=== PATIENT | male | born 1950 | race Caucasian/White ===

== ENCOUNTER 2017-03-07 00:07 | Emergency (ER) | payer MEDICARE ==
[~2017-03-07] VITALS: Ht 167.6 cm; Wt 68.0 kg
[~2017-03-07 00:07] MED LIST: PHEN100C PO
[2017-03-07] MEDS ORDERED: SODIUM CHLORIDE 0.9% 1,000ML IVBOLUS ONE (01:00)
[2017-03-07 01:10] LABS: BLOOD UREA NITROGEN 15 mg/dL (7-18)
[2017-03-07 01:17] LABS: IS PT STATUS REG ER OR PRE ER? YES
[2017-03-07] MEDS ORDERED: LEVETIRACETAM 1,000 MG in SODIUM CHLORIDE 0.9% 100 ML IV ONE (01:30)
[2017-03-07 01:46] LABS: DAU SCREEN DISCLAIMER
[2017-03-07 03:18] VITALS: BP 117/64
== END 2017-03-07 03:19 | disposition home or self-care (01) ==
LOC: ED 03:00
DX: G40.319 Generalized idiopathic epilepsy and epileptic syndromes, intractable, without status epilepticus (principal); F12.129 Cannabis abuse with intoxication, unspecified; F15.129 Other stimulant abuse with intoxication, unspecified
CPT/HCPCS: 36415; 70450; 80048; 80307; 82040; 84484; 85025; 93005; 96361; 96374; 99285; J1953; J7030

== ENCOUNTER 2017-03-23 03:15 | Emergency (ER) | payer MEDICARE ==
[~2017-03-23] VITALS: Ht 170.2 cm; Wt 60.0 kg
[2017-03-23 06:04] VITALS: BP 121/81
== END 2017-03-23 06:06 | disposition home or self-care (01) ==
LOC: ED 03:53
DX: Z76.0 Encounter for issue of repeat prescription (principal); M25.562 Pain in left knee; M25.561 Pain in right knee; G89.29 Other chronic pain; F10.10 Alcohol abuse, uncomplicated; F15.10 Other stimulant abuse, uncomplicated; Z88.6 Allergy status to analgesic agent
CPT/HCPCS: 36415; 71010; 71020; 80307; 84550; 99285

== ENCOUNTER 2017-07-22 11:39 | Emergency (ER) | payer MEDICARE ==
[~2017-07-22] VITALS: Ht 170.2 cm; Wt 53.6 kg
[2017-07-22 11:41] VITALS: BP 141/74
== END 2017-07-22 12:54 | disposition home or self-care (01) ==
LOC: ED 12:30
DX: S20.212A Contusion of left front wall of thorax, initial encounter (principal); I10 Essential (primary) hypertension; W20.8XXA Other cause of strike by thrown, projected or falling object, initial encounter; Y93.89 Activity, other specified; Y92.89 Other specified places as the place of occurrence of the external cause; Y99.8 Other external cause status
CPT/HCPCS: 99284

== ENCOUNTER 2017-10-24 13:40 | Inpatient (IN) | payer MEDICARE, MEDICAID ==
[~2017-10-24] VITALS: Ht 170.2 cm; Wt 59.0 kg
[2017-10-24] MEDS ORDERED: SODIUM CHLORIDE 0.9% 1,000 ML IV ONE (14:19)
[2017-10-24] MEDS ORDERED: PLEASE ENTER HEIGHT AND WEIGHT MC SCH (14:30)
[2017-10-24] MEDS ORDERED: SODIUM CHLORIDE FLUSH 10ML SYR IVF ONE (14:30)
[2017-10-24 14:48] LABS: HEMATOCRIT 44.4 % (39.2-51.8); HEMOGLOBIN 14.6 g/dL (13.7-18.0); WHITE BLOOD COUNT 4.3 x10^3/uL (3.4-10)
[2017-10-24 14:57] LABS: ASPARTATE AMINO TRANSFERASE 43 U/L (15-37); BLOOD UREA NITROGEN 19 mg/dL (7-18)
[2017-10-24] MEDS ORDERED: FILTER 0.22 MICRON IV ONE (16:30)
[2017-10-24] MEDS ORDERED: PHENYTOIN SODIUM 1,000 MG in SODIUM CHLORIDE 0.9% 100 ML IVPB ONE (16:30)
[2017-10-24 18:53] LABS: DAU SCREEN DISCLAIMER
[2017-10-24] MEDS ORDERED: BISACODYL 10 MG SUPP PR PRN (19:00)
[2017-10-24] MEDS ORDERED: ACETAMINOPHEN 325 MG TABLET PO PRN (19:00)
[2017-10-24] MEDS: HEPARIN 5,000 UNITS/ML, 1ML SQ SCH (19:00)
[2017-10-24] MEDS ORDERED: ONDANSETRON 2MG/ML, 2ML IVPush PRN (19:00)
[2017-10-24] MEDS ORDERED: POLYETHYLENE GLYCOL 17 GM PACKET PO PRN (19:00)
[2017-10-24] MEDS ORDERED: PERMETHRIN CRM 5%, 60GM TP SCH (19:30)
[2017-10-24] MEDS ORDERED: LORazepam 2 MG/ML, 1ML IVPush PRN (19:30)
[2017-10-24] MEDS ORDERED: NICOTINE 21 MG/24 HR PATCH.TD24 TD ONE (19:30)
[2017-10-24 20:00] VITALS: BP 109/65
[2017-10-24] MEDS: SODIUM CHLORIDE FLUSH 10ML SYR IVF SCH (23:40)
[2017-10-25] MEDS: HEPARIN 5,000 UNITS/ML, 1ML SQ SCH ×2 (03:00→11:23)
[2017-10-25 04:00] VITALS: BP 104/71
[2017-10-25 05:17] LABS: BLOOD UREA NITROGEN 19 mg/dL (7-18)
[2017-10-25 05:22] LABS: ASPARTATE AMINO TRANSFERASE 38 U/L (15-37)
[2017-10-25 06:15] VITALS: BP 109/65
[2017-10-25 08:00] VITALS: BP 108/69
[2017-10-25] MEDS ORDERED: SENNA/DOCUSATE TABLET PO SCH (09:00)
[2017-10-25] MEDS ORDERED: PHENYTOIN 100 MG CAPSULE PO SCH (09:00)
[2017-10-25] MEDS: SODIUM CHLORIDE FLUSH 10ML SYR IVF SCH (11:22)
[2017-10-25 14:00] VITALS: BP 101/66
[2017-10-25] MEDS ORDERED: PHEN100C PO (15:16)
== END 2017-10-25 17:23 | disposition home or self-care (01) | DRG 101 ==
LOC: ED 17:40 → EDIP 18:48 → 3NE 19:00
PROVIDERS: ADMIT Hospitalist; ATTEND Hospitalist
DX: G40.509 Epileptic seizures related to external causes, not intractable, without status epilepticus (principal); B85.2 Pediculosis, unspecified; F12.10 Cannabis abuse, uncomplicated; F19.10 Other psychoactive substance abuse, uncomplicated; Z71.6 Tobacco abuse counseling; Z72.0 Tobacco use; Z91.14 Patient's other noncompliance with medication regimen; Z90.89 Acquired absence of other organs; Z88.6 Allergy status to analgesic agent; Z71.89 Other specified counseling
CPT/HCPCS: 36415; 70450; 80053; 80185; 80307; 81003; 85025; 93005; 96361; 96365; 96366; J1165; J1644; G0479; J7030

== ENCOUNTER 2017-12-26 15:07 | Emergency (ER) | payer MEDICAID, MEDICARE ==
[~2017-12-26] VITALS: Ht 170.2 cm; Wt 60.0 kg
[2017-12-26 15:08] VITALS: BP 102/68
[2017-12-26] MEDS ORDERED: HYDROcodone/APAP 5/325 TABLET ONE (16:14)
[2017-12-26] MEDS ORDERED: HYDROcodone/APAP 5/325 TABLET PO ONE (16:30)
== END 2017-12-26 16:21 | disposition home or self-care (01) ==
LOC: ED 15:43
DX: S76.112A Strain of left quadriceps muscle, fascia and tendon, initial encounter (principal); I10 Essential (primary) hypertension; F17.210 Nicotine dependence, cigarettes, uncomplicated; X58.XXXA Exposure to other specified factors, initial encounter; Y93.89 Activity, other specified; Y92.89 Other specified places as the place of occurrence of the external cause; Y99.9 Unspecified external cause status
CPT/HCPCS: 99284

== ENCOUNTER 2018-01-03 08:00 | Emergency (ER) | payer MEDICARE ==
[~2018-01-03] VITALS: Ht 170.2 cm; Wt 150.0 kg
[2018-01-03 08:29] LABS: BASOPHILS # (AUTO) 0.12 x10^3/uL (0-0.1); BASOPHILS % (AUTO) 1 % (0-1); EOSINOPHILS # (AUTO) 0.24 x10^3/uL (0-0.4); EOSINOPHILS % (AUTO) 2 % (1-7); LYMPHOCYTES % (AUTO) 8 % (22-44); MD NO; MEAN CORPUSCULAR HEMOGLOBIN 28.9 pg (27.5-34.5); MEAN CORPUSCULAR HGB CONC 33.1 g/dL (33.2-36.2); MEAN CORPUSCULAR VOLUME 87.3 fL (81-97); MEAN PLATELET VOLUME 6.6 fL (7.4-10.4); MONOCYTES # (AUTO) 0.95 x10^3/uL (0.2-0.8); MONOCYTES % (AUTO) 8 % (2-9); NEUTROPHILS # (AUTO) 10.07 x10^3/uL (1.8-6.8); NEUTROPHILS % (AUTO) 81 % (42-75); PLATELET COUNT 594 x10^3/uL (130-400); RED CELL DISTRIBUTION WIDTH 14.5 % (9.4-14.8)
[2018-01-03 08:42] LABS: ALANINE AMINOTRANSFERASE 29 U/L (12-78); ALBUMIN 2.2 g/dL (3.4-5.0); ANION GAP 7 mmol/L (5-15); CALCIUM 8.4 mg/dL (8.5-10.1); CHLORIDE 104 mmol/L (98-107)
[2018-01-03 08:44] LABS: ALKALINE PHOSPHATASE 89 U/L (45-117); BILIRUBIN,TOTAL 0.3 mg/dL (0.2-1.0); TOTAL PROTEIN 6.8 g/dL (6.4-8.2)
[2018-01-03] MEDS ORDERED: PHENYTOIN SODIUM 1,000 MG in SODIUM CHLORIDE 0.9% 100 ML IV ONE (09:00)
[2018-01-03] MEDS ORDERED: SODIUM CHLORIDE 0.9% 1,000ML IVBOLUS ONE (09:30)
[2018-01-03] MEDS ORDERED: FILTER 0.22 MICRON IV ONE (09:30)
[2018-01-03 10:15] VITALS: BP 94/56
[2018-01-03 11:10] LABS: AMPHETAMINE SCREEN, URINE Positive (Negative); BARBITURATE SCREEN, URINE Negative (Negative); BENZODIAZEPINE SCREEN, URINE Negative (Negative); CANNABINOID SCREEN, URINE Positive (Negative); COCAINE SCREEN, URINE Negative (Negative); METHADONE SCREEN, URINE Negative (Negative); OPIATE SCREEN, URINE Negative (Negative)
== END 2018-01-03 13:09 | disposition home or self-care (01) ==
LOC: ED 08:54
DX: G40.309 Generalized idiopathic epilepsy and epileptic syndromes, not intractable, without status epilepticus (principal); I10 Essential (primary) hypertension; F15.10 Other stimulant abuse, uncomplicated; R05 Cough; Z72.9 Problem related to lifestyle, unspecified
CPT/HCPCS: 36415; 70450; 80053; 80185; 80307; 85025; 96365; 99285; J1165; J7030

== ENCOUNTER 2018-01-16 16:08 | Inpatient (IN) | payer MEDICARE ==
[~2018-01-16] VITALS: Ht 170.2 cm; Wt 50.6 kg
[2018-01-16] MEDS ORDERED: PLEASE ENTER WEIGHT MC SCH (17:00)
[2018-01-16] MEDS ORDERED: SODIUM CHLORIDE FLUSH 10ML SYR IVF ONE (17:00)
[2018-01-16] MEDS ORDERED: CLINDAMYCIN PMX 600MG/50ML 50 ML IV ONE (17:00)
[2018-01-16 17:13] LABS: BASOPHILS # (AUTO) 0.02 x10^3/uL (0-0.1); BASOPHILS % (AUTO) 0 % (0-1); EOSINOPHILS # (AUTO) 0.05 x10^3/uL (0-0.4); EOSINOPHILS % (AUTO) 1 % (1-7); LYMPHOCYTES # (AUTO) 1.09 x10^3/uL (1-3.4); LYMPHOCYTES % (AUTO) 10 % (22-44); MD NO; MEAN CORPUSCULAR HEMOGLOBIN 28.1 pg (27.5-34.5); MEAN CORPUSCULAR HGB CONC 32.6 g/dL (33.2-36.2); MEAN CORPUSCULAR VOLUME 86.2 fL (81-97); MEAN PLATELET VOLUME 6.7 fL (7.4-10.4); MONOCYTES # (AUTO) 0.99 x10^3/uL (0.2-0.8); MONOCYTES % (AUTO) 9 % (2-9); NEUTROPHILS # (AUTO) 8.37 x10^3/uL (1.8-6.8); NEUTROPHILS % (AUTO) 80 % (42-75); PLATELET COUNT 635 x10^3/uL (130-400); RED BLOOD COUNT 4.67 x10^6/uL (4.38-5.82); RED CELL DISTRIBUTION WIDTH 14.6 % (9.4-14.8)
[2018-01-16 17:22] LABS: ALANINE AMINOTRANSFERASE 19 U/L (12-78); ALBUMIN 2.1 g/dL (3.4-5.0); ANION GAP 6 mmol/L (5-15); CALCIUM 8.7 mg/dL (8.5-10.1); CHLORIDE 99 mmol/L (98-107); CREATININE 0.77 mg/dL (0.7-1.3)
[2018-01-16 17:24] LABS: ALKALINE PHOSPHATASE 78 U/L (45-117); BILIRUBIN,TOTAL 0.4 mg/dL (0.2-1.0); TOTAL PROTEIN 7.9 g/dL (6.4-8.2)
[2018-01-16] MEDS ORDERED: CLINDAMYCIN PMX 600MG/50ML 50 ML ONE (17:36)
[2018-01-16 17:50] LABS: MICROSCOPIC INDICATED
[2018-01-16 17:56] LABS: CULTURE INDICATED? NO
[2018-01-16 18:05] LABS: AMPHETAMINE SCREEN, URINE Negative (Negative); BARBITURATE SCREEN, URINE Negative (Negative); BENZODIAZEPINE SCREEN, URINE Negative (Negative); CANNABINOID SCREEN, URINE Positive (Negative); COCAINE SCREEN, URINE Negative (Negative); METHADONE SCREEN, URINE Negative (Negative); OPIATE SCREEN, URINE Negative (Negative)
[2018-01-16] MEDS ORDERED: LIDOCAINE-MPF 1%, 5ML INFIL ONE (18:30)
[2018-01-16] MEDS ORDERED: ONDANSETRON 2MG/ML, 2ML ONE (19:25)
[2018-01-16] MEDS ORDERED: MORPHINE SULFATE 4 MG/ML, 1ML ONE (19:25)
[2018-01-16] MEDS ORDERED: PHARMACOKINETIC MONITORING MC ONE (19:30)
[2018-01-16] MEDS ORDERED: MORPHINE SULFATE 4 MG/ML, 1ML IV PRN (19:30)
[2018-01-16] MEDS ORDERED: VANCOMYCIN PMX 1GM/200ML 200 ML IV ONE (19:30)
[2018-01-16] MEDS ORDERED: ONDANSETRON 2MG/ML, 2ML IVPush ONE (19:30)
[2018-01-16] MEDS ORDERED: VANCOMYCIN PER PHARMACY MC ONE (19:30)
[2018-01-16] MEDS ORDERED: PHARMACOKINETIC CONSULTATION MC ONE ×2 (19:30→22:00)
[2018-01-16] MEDS ORDERED: VANCOMYCIN PER PHARMACY MC PRN (20:30)
[2018-01-16] MEDS ORDERED: ACETAMINOPHEN 325 MG TABLET PO PRN (20:30)
[2018-01-16] MEDS ORDERED: ENALAPRILAT 1.25 MG/ML, 2ML IVPush PRN (20:30)
[2018-01-16] MEDS ORDERED: BISACODYL 10 MG SUPP PR PRN (20:30)
[2018-01-16] MEDS ORDERED: POLYETHYLENE GLYCOL 17 GM PACKET PO PRN (20:30)
[2018-01-16] MEDS ORDERED: hydrALAzine 20 MG/ML, 1ML IVPush PRN (20:30)
[2018-01-16] MEDS ORDERED: ONDANSETRON 2MG/ML, 2ML IVPush PRN (20:30)
[2018-01-16 20:56] LABS: FREE T4 (FREE THYROXINE) 1.63 ng/dL (0.76-1.46); THYROID STIMULATING HORMONE 2.24 mIU/L (0.358-3.740)
[2018-01-16 21:03] LABS: HEMOGLOBIN A1C 6.7 % (4.2-6.3)
[2018-01-16] MEDS: PIPERACILLIN/TAZO/PMX 3.375GM 50 ML IV SCH (21:56)
[2018-01-16] MEDS: HEPARIN 5,000 UNITS/ML, 1ML SQ SCH (21:56)
[2018-01-16] MEDS: SODIUM CHLORIDE 0.9% 1,000 ML IV SCH (21:56)
[2018-01-16] MEDS: NICOTINE 7 MG/24 HR PATCH.TD24 TD SCH (21:57)
[2018-01-16] MEDS ORDERED: PHARMACOKINETIC MONITORING MC PRN (22:00)
[2018-01-16 22:10] VITALS: BP 119/74
[2018-01-17 02:05] VITALS: BP 106/69
[2018-01-17] MEDS: morphine SULFATE 10 MG/ML, 1ML IVPush PRN ×2 (02:17→05:50)
[2018-01-17 04:53] LABS: BASOPHILS # (AUTO) 0.07 x10^3/uL (0-0.1); BASOPHILS % (AUTO) 1 % (0-1); EOSINOPHILS % (AUTO) 1 % (1-7); LYMPHOCYTES # (AUTO) 1.23 x10^3/uL (1-3.4); LYMPHOCYTES % (AUTO) 11 % (22-44); MD NO; MEAN CORPUSCULAR HGB CONC 32.7 g/dL (33.2-36.2); MEAN CORPUSCULAR VOLUME 85.7 fL (81-97); MONOCYTES # (AUTO) 1.04 x10^3/uL (0.2-0.8); MONOCYTES % (AUTO) 9 % (2-9); NEUTROPHILS # (AUTO) 8.66 x10^3/uL (1.8-6.8); NEUTROPHILS % (AUTO) 78 % (42-75); PLATELET COUNT 573 x10^3/uL (130-400); RED BLOOD COUNT 4.16 x10^6/uL (4.38-5.82); RED CELL DISTRIBUTION WIDTH 14.2 % (9.4-14.8)
[2018-01-17 05:08] LABS: CALCIUM 8.2 mg/dL (8.5-10.1); CHLORIDE 101 mmol/L (98-107)
[2018-01-17 05:14] LABS: ALANINE AMINOTRANSFERASE 12 U/L (12-78); ALBUMIN 1.9 g/dL (3.4-5.0); ALKALINE PHOSPHATASE 65 U/L (45-117); ANION GAP 8 mmol/L (5-15); BILIRUBIN,TOTAL 0.4 mg/dL (0.2-1.0); CREATININE 0.76 mg/dL (0.7-1.3); HDL CHOLESTEROL (DIRECT) 23 mg/dL (40-60); TOTAL PROTEIN 6.9 g/dL (6.4-8.2); TRIGLYCERIDES 34 mg/dL (50-200); VLDL CHOLESTEROL 7 mg/dL (0-25)
[2018-01-17 05:17] LABS: CHOL/HDL RATIO 2.2; CHOLESTEROL, TOTAL < 50 mg/dL (140-239); HDL CHOL % 0 % (26-37); LDL CHOLESTEROL,CALCULATED 20 mg/dL (54-169); LDL/HDL RATIO 0.9 (0.5-3.0)
[2018-01-17] MEDS: PIPERACILLIN/TAZO/PMX 3.375GM 50 ML IV SCH ×4 (05:50→23:00)
[2018-01-17] MEDS: HEPARIN 5,000 UNITS/ML, 1ML SQ SCH ×3 (05:50→20:04)
[2018-01-17 07:20] VITALS: BP 113/73
[2018-01-17 07:46] LABS: INTERNATIONAL NORMALIZED RATIO 1.16 (0.93-1.1)
[2018-01-17] MEDS: PHENYTOIN 100 MG CAPSULE PO SCH (09:09)
[2018-01-17] MEDS: SENNA/DOCUSATE TABLET PO SCH (09:09)
[2018-01-17] MEDS: SODIUM CHLORIDE 0.9% 1,000 ML IV SCH (09:09)
[2018-01-17] MEDS ORDERED: FENTANYL PF 250 MCG/5ML ONE (11:10)
[2018-01-17] MEDS ORDERED: MIDAZOLAM 1 MG/ML, 2ML ONE (11:10)
[2018-01-17] MEDS ORDERED: PROPOFOL 10 MG/ML, 20ML ONE (11:12)
[2018-01-17] MEDS ORDERED: hydrALAzine 20 MG/ML, 1ML IV PRN (12:00)
[2018-01-17] MEDS ORDERED: FENTANYL PF 100 MCG/2ML IV PRN (12:00)
[2018-01-17] MEDS ORDERED: PROMETHAZINE 25 MG/ML, 1ML IV PRN (12:00)
[2018-01-17] MEDS ORDERED: morphine SULFATE 10 MG/ML, 1ML IV PRN (12:00)
[2018-01-17] MEDS ORDERED: OXYcodone 5 MG/5 ML ORAL.SOL UDC PO PRN (12:00)
[2018-01-17] MEDS ORDERED: LABETALOL 5MG/ML, 20ML IV PRN (12:00)
[2018-01-17] MEDS ORDERED: ONDANSETRON 2MG/ML, 2ML IVPush PRN (12:00)
[2018-01-17] MEDS ORDERED: HYDROmorphone 1 MG/ML, 1ML IV PRN (12:00)
[2018-01-17] MEDS ORDERED: PROMETHAZINE 12.5 MG SUPP PR PRN (12:00)
[2018-01-17] MEDS ORDERED: FENTANYL PF 100 MCG/2ML ONE (13:03)
[2018-01-17] MEDS ORDERED: OXYcodone 5 MG/5 ML ORAL.SOL UDC ONE (13:03)
[2018-01-17 13:56] VITALS: BP 104/63
[2018-01-17 19:44] VITALS: BP 96/59
[2018-01-17] MEDS: NICOTINE 7 MG/24 HR PATCH.TD24 TD SCH (20:03)
[2018-01-17] MEDS: VANCOMYCIN PMX 1GM/200ML 200 ML IV SCH (20:03)
[2018-01-18 01:13] VITALS: BP 92/58
[2018-01-18] MEDS: HEPARIN 5,000 UNITS/ML, 1ML SQ SCH (05:16)
[2018-01-18] MEDS: PIPERACILLIN/TAZO/PMX 3.375GM 50 ML IV SCH ×4 (05:16→23:00)
[2018-01-18 05:34] LABS: BASOPHILS # (AUTO) 0.09 x10^3/uL (0-0.1); BASOPHILS % (AUTO) 1 % (0-1); EOSINOPHILS # (AUTO) 0.16 x10^3/uL (0-0.4); EOSINOPHILS % (AUTO) 2 % (1-7); LYMPHOCYTES # (AUTO) 1.13 x10^3/uL (1-3.4); LYMPHOCYTES % (AUTO) 12 % (22-44); MD NO; MEAN CORPUSCULAR HEMOGLOBIN 28.4 pg (27.5-34.5); MEAN CORPUSCULAR HGB CONC 33.2 g/dL (33.2-36.2); MEAN CORPUSCULAR VOLUME 85.5 fL (81-97); MEAN PLATELET VOLUME 6.4 fL (7.4-10.4); MONOCYTES # (AUTO) 0.94 x10^3/uL (0.2-0.8); MONOCYTES % (AUTO) 10 % (2-9); NEUTROPHILS # (AUTO) 7.08 x10^3/uL (1.8-6.8); NEUTROPHILS % (AUTO) 75 % (42-75); PLATELET COUNT 556 x10^3/uL (130-400); RED BLOOD COUNT 3.73 x10^6/uL (4.38-5.82); RED CELL DISTRIBUTION WIDTH 14.4 % (9.4-14.8)
[2018-01-18 05:40] LABS: ALANINE AMINOTRANSFERASE 16 U/L (12-78); ALBUMIN 1.8 g/dL (3.4-5.0); ANION GAP 6 mmol/L (5-15); CALCIUM 7.9 mg/dL (8.5-10.1); CHLORIDE 101 mmol/L (98-107); CREATININE 0.91 mg/dL (0.7-1.3)
[2018-01-18 05:43] LABS: ALKALINE PHOSPHATASE 62 U/L (45-117); BILIRUBIN,TOTAL 0.5 mg/dL (0.2-1.0); TOTAL PROTEIN 6.6 g/dL (6.4-8.2)
[2018-01-18 07:40] VITALS: BP 101/65
[2018-01-18] MEDS: PHENYTOIN 100 MG CAPSULE PO SCH (08:05)
[2018-01-18] MEDS: SENNA/DOCUSATE TABLET PO SCH (08:06)
[2018-01-18] MEDS: OXYcodone IR 5MG TABLET PO PRN ×3 (08:06→23:22)
[2018-01-18 13:36] VITALS: BP 101/61
[2018-01-18] MEDS: ENOXAPARIN 40 MG/0.4 ML SQ SCH (15:19)
[2018-01-18 20:09] VITALS: BP 98/55
[2018-01-18] MEDS: NICOTINE 7 MG/24 HR PATCH.TD24 TD SCH (20:17)
[2018-01-18] MEDS: VANCOMYCIN PMX 1GM/200ML 200 ML IV SCH ×2 (20:17→20:24)
[2018-01-19 01:05] VITALS: BP 96/51
[2018-01-19] MEDS: PIPERACILLIN/TAZO/PMX 3.375GM 50 ML IV SCH (05:07)
[2018-01-19 07:42] VITALS: BP 116/68
[2018-01-19] MEDS: PHENYTOIN 100 MG CAPSULE PO SCH (09:45)
[2018-01-19] MEDS: SENNA/DOCUSATE TABLET PO SCH (09:45)
[2018-01-19] MEDS: INSULIN LISPRO 100 UNITS/ML, PEN SQ-INSULIN SCH ×3 (11:00→21:00)
[2018-01-19 13:13] VITALS: BP 97/64
[2018-01-19] MEDS: OXYcodone IR 5MG TABLET PO PRN (14:08)
[2018-01-19] MEDS: VANCOMYCIN PMX 1GM/200ML 200 ML IV SCH (14:08)
[2018-01-19] MEDS: ENOXAPARIN 40 MG/0.4 ML SQ SCH (14:08)
[2018-01-19] MEDS ORDERED: VANCOMYCIN PMX 1GM/200ML 200 ML IV SCH (14:30)
[2018-01-19 18:48] VITALS: BP 97/64
[2018-01-19] MEDS: NICOTINE 7 MG/24 HR PATCH.TD24 TD SCH (20:10)
[2018-01-20] MEDS: OXYcodone IR 5MG TABLET PO PRN ×2 (00:42→18:52)
[2018-01-20 01:05] VITALS: BP 107/68
[2018-01-20 07:53] VITALS: BP 125/77
[2018-01-20] MEDS: INSULIN LISPRO 100 UNITS/ML, PEN SQ-INSULIN SCH ×3 (08:45→16:00)
[2018-01-20] MEDS: VANCOMYCIN PMX 1GM/200ML 200 ML IV SCH (08:46)
[2018-01-20] MEDS: SENNA/DOCUSATE TABLET PO SCH (08:46)
[2018-01-20] MEDS: PHENYTOIN 100 MG CAPSULE PO SCH (08:46)
[2018-01-20] MEDS ORDERED: SULF-169 PO (15:03)
[2018-01-20] MEDS ORDERED: ACET325T14 PO (15:03)
[2018-01-20] MEDS ORDERED: DOXY100T PO (15:03)
[2018-01-20] MEDS: ENOXAPARIN 40 MG/0.4 ML SQ SCH (15:41)
[2018-01-20] MEDS: morphine SULFATE 10 MG/ML, 1ML IVPush PRN (15:41)
[2018-01-20 15:44] VITALS: BP 116/74
[2018-01-20] MEDS ORDERED: PHEN100C PO (16:33)
[2018-01-20] MEDS ORDERED: SULFAMETH./TRIMETHOPRIM DS 800MG/160MG TABLET PO SCH (21:00)
[2018-01-20] MEDS ORDERED: DOXYCYCLINE 100MG TABLET PO SCH (21:00)
== END 2018-01-20 19:00 | disposition home or self-care (01) | DRG 579 ==
LOC: ED 19:33 → EDIP 19:45 → 3NE 20:35
PROVIDERS: ADMIT Internal Medicine; ATTEND Internal Medicine
PROC: 0J9M0ZZ Drainage of Left Upper Leg Subcutaneous Tissue and Fascia, Open Approach (ICD-10-PCS; principal; 2018-01-17 11:30)
DX: L02.416 Cutaneous abscess of left lower limb (principal); E43 Unspecified severe protein-calorie malnutrition; E87.1 Hypo-osmolality and hyponatremia; E11.9 Type 2 diabetes mellitus without complications; B95.62 Methicillin resistant Staphylococcus aureus infection as the cause of diseases classified elsewhere; F12.10 Cannabis abuse, uncomplicated; G40.509 Epileptic seizures related to external causes, not intractable, without status epilepticus; Z68.1 Body mass index [BMI] 19.9 or less, adult; F15.10 Other stimulant abuse, uncomplicated; F17.200 Nicotine dependence, unspecified, uncomplicated; I10 Essential (primary) hypertension; R62.7 Adult failure to thrive; Z88.6 Allergy status to analgesic agent; Z91.19 Patient's noncompliance with other medical treatment and regimen; Z90.89 Acquired absence of other organs; Z71.51 Drug abuse counseling and surveillance of drug abuser
CPT/HCPCS: 36415; 71045; 80053; 80061; 80202; 80307; 81001; 82962; 83036; 83735; 84100; 84439; 84443; 85025; 85610; 87040; 87070; 87075; 87077; 87147; 87186; 87205; 93005; 93306; 96365; 96375; J1644; J1650; J2250; J2405; J2543; J2704; J3010; J3370; J2270; J7030

== ENCOUNTER 2018-04-18 04:35 | Emergency (ER) | payer MEDICARE ==
[~2018-04-18] VITALS: Ht 170.2 cm; Wt 50.0 kg
[~2018-04-18 04:35] MED LIST changes: +ACET325T14 PO; +DOXY100T PO; +SULF-169 PO
[2018-04-18 04:43] VITALS: BP 120/76
[2018-04-18] MEDS ORDERED: SODIUM CHLORIDE FLUSH 10ML SYR IVF ONE (05:30)
[2018-04-18 05:54] LABS: MEAN CORPUSCULAR HEMOGLOBIN 29.5 pg (27.5-34.5); MEAN CORPUSCULAR HGB CONC 33.6 g/dL (33.2-36.2); MEAN CORPUSCULAR VOLUME 87.8 fL (81-97); MEAN PLATELET VOLUME 7.7 fL (7.4-10.4); PLATELET COUNT 260 x10^3/uL (130-400); RED BLOOD COUNT 4.48 x10^6/uL (4.38-5.82); RED CELL DISTRIBUTION WIDTH 14.7 % (9.4-14.8)
[2018-04-18 05:58] LABS: ALBUMIN 3.3 g/dL (3.4-5.0); ANION GAP 6 mmol/L (5-15); CALCIUM 8.5 mg/dL (8.5-10.1); CHLORIDE 103 mmol/L (98-107); CREATININE 0.92 mg/dL (0.7-1.3); SALICYLATE LEVEL 2.4 mg/dL (2.8-20.0)
[2018-04-18 06:02] LABS: TROPONIN I < 0.015 ng/mL (0.000-0.045)
[2018-04-18 06:03] LABS: ACETAMINOPHEN < 2 mcg/mL (10-30)
[2018-04-18 06:32] LABS: INTERNATIONAL NORMALIZED RATIO 1.07 (0.93-1.1)
[2018-04-18] MEDS ORDERED: PHENYTOIN 100 MG CAPSULE ONE (06:53)
[2018-04-18 07:27] LABS: MD YES
[2018-04-18 07:30] LABS: <PLATELET ESTIMATE> ADEQUATE; <PLT MORPHOLOGY> NORMAL PLT MORPH; BAND#(MANUAL) 0.03 x10^3/uL; BANDS%(MANUAL) 1 % (0-7); BASOS#(MANUAL) 0.09 x10^3/uL (0-0.1); BASOS% (MANUAL) 3 % (0-1); EOS#(MANUAL) 0.09 x10^3/uL (0.0-0.4); EOS% (MANUAL) 3 % (1-7); LYMPH#(MANUAL) 1.07 x10^3/uL (1-3.4); LYMPHS% (MANUAL) 37 % (22-44); MONOS#(MANUAL) 0.29 x10^3/uL (0.3-2.7); MONOS% (MANUAL) 10 % (2-9); SEG#(MANUAL) 1.33 x10^3/uL (1.8-6.8); SEGS% (MANUAL) 46 % (42-75)
[2018-04-18 07:33] LABS: <RBC MORPHOLOGY> NORMAL
[2018-04-18] MEDS ORDERED: PHENYTOIN 100 MG CAPSULE PO ONE (21:00)
== END 2018-04-18 08:30 | disposition home or self-care (01) ==
LOC: ED 07:04
DX: G40.909 Epilepsy, unspecified, not intractable, without status epilepticus (principal); D72.819 Decreased white blood cell count, unspecified; I10 Essential (primary) hypertension; F17.200 Nicotine dependence, unspecified, uncomplicated; Z86.73 Personal history of transient ischemic attack (TIA), and cerebral infarction without residual deficits
CPT/HCPCS: 36415; 70450; 71045; 80048; 80185; 80307; 80329; 82040; 82140; 83605; 84484; 85025; 85610; 93005; 99285; G0480

== ENCOUNTER 2018-05-21 15:35 | Emergency (ER) | payer MEDICARE, MEDICAID ==
[~2018-05-21] VITALS: Ht 170.2 cm; Wt 60.0 kg
[2018-05-21 15:46] VITALS: BP 127/78
[2018-05-21] MEDS ORDERED: ACETAMINOPHEN 500 MG TABLET ONE (16:00)
[2018-05-21] MEDS ORDERED: PHENYTOIN 100 MG CAPSULE ONE (16:00)
[2018-05-21] MEDS ORDERED: PHENYTOIN 100 MG CAPSULE PO ONE (16:00)
[2018-05-21] MEDS ORDERED: ACETAMINOPHEN 500 MG TABLET PO ONE (16:00)
[2018-05-21 16:19] LABS: BASOPHILS # (AUTO) 0.02 x10^3/uL (0-0.1); BASOPHILS % (AUTO) 0 % (0-1); EOSINOPHILS # (AUTO) 0.03 x10^3/uL (0-0.4); EOSINOPHILS % (AUTO) 1 % (1-7); LYMPHOCYTES # (AUTO) 1.06 x10^3/uL (1-3.4); LYMPHOCYTES % (AUTO) 19 % (22-44); MD NO; MEAN CORPUSCULAR HEMOGLOBIN 29.4 pg (27.5-34.5); MEAN CORPUSCULAR HGB CONC 33.5 g/dL (33.2-36.2); MEAN CORPUSCULAR VOLUME 87.6 fL (81-97); MEAN PLATELET VOLUME 7.5 fL (7.4-10.4); MONOCYTES # (AUTO) 0.64 x10^3/uL (0.2-0.8); MONOCYTES % (AUTO) 11 % (2-9); NEUTROPHILS # (AUTO) 3.95 x10^3/uL (1.8-6.8); NEUTROPHILS % (AUTO) 69 % (42-75); PLATELET COUNT 239 x10^3/uL (130-400); RED BLOOD COUNT 5.01 x10^6/uL (4.38-5.82); RED CELL DISTRIBUTION WIDTH 14.2 % (9.4-14.8)
[2018-05-21 16:30] LABS: ALBUMIN 3.8 g/dL (3.4-5.0); ANION GAP 8 mmol/L (5-15); CHLORIDE 106 mmol/L (98-107)
== END 2018-05-21 17:05 | disposition home or self-care (01) ==
LOC: ED 16:50
DX: G40.411 Other generalized epilepsy and epileptic syndromes, intractable, with status epilepticus (principal); S09.90XA Unspecified injury of head, initial encounter; Z72.89 Other problems related to lifestyle; I10 Essential (primary) hypertension; F17.200 Nicotine dependence, unspecified, uncomplicated; W18.39XA Other fall on same level, initial encounter; Y93.89 Activity, other specified; Y92.89 Other specified places as the place of occurrence of the external cause; Y99.8 Other external cause status
CPT/HCPCS: 36415; 80048; 82040; 85025; 99284

== ENCOUNTER 2018-07-17 15:51 | Inpatient (IN) | payer MEDICARE, MEDICAID ==
[~2018-07-17] VITALS: Ht 170.2 cm; Wt 37.9 kg
[2018-07-17] MEDS ORDERED: PLEASE ENTER ALLERGIES MC SCH (16:30)
[2018-07-17] MEDS ORDERED: LORazepam 2 MG/ML, 1ML IVPush ONE (16:30)
[2018-07-17 16:33] LABS: BASOPHILS # (AUTO) 0.04 x10^3/uL (0-0.1); BASOPHILS % (AUTO) 1 % (0-1); EOSINOPHILS # (AUTO) 0.07 x10^3/uL (0-0.4); EOSINOPHILS % (AUTO) 1 % (1-7); LYMPHOCYTES # (AUTO) 0.99 x10^3/uL (1-3.4); LYMPHOCYTES % (AUTO) 17 % (22-44); MD NO; MEAN CORPUSCULAR HEMOGLOBIN 28.9 pg (27.5-34.5); MEAN CORPUSCULAR HGB CONC 32.6 g/dL (33.2-36.2); MEAN CORPUSCULAR VOLUME 88.4 fL (81-97); MEAN PLATELET VOLUME 7.2 fL (7.4-10.4); MONOCYTES # (AUTO) 0.55 x10^3/uL (0.2-0.8); MONOCYTES % (AUTO) 9 % (2-9); NEUTROPHILS # (AUTO) 4.18 x10^3/uL (1.8-6.8); NEUTROPHILS % (AUTO) 72 % (42-75); PLATELET COUNT 243 x10^3/uL (130-400); RED BLOOD COUNT 5.08 x10^6/uL (4.38-5.82); RED CELL DISTRIBUTION WIDTH 16.9 % (9.4-14.8)
[2018-07-17 16:44] LABS: ALBUMIN 3.4 g/dL (3.4-5.0); ANION GAP 7 mmol/L (5-15); CALCIUM 8.8 mg/dL (8.5-10.1); CHLORIDE 108 mmol/L (98-107)
[2018-07-17 16:48] LABS: ALANINE AMINOTRANSFERASE 39 U/L (12-78); ALKALINE PHOSPHATASE 93 U/L (45-117); BILIRUBIN,TOTAL 0.5 mg/dL (0.2-1.0); CREATININE 1.15 mg/dL (0.7-1.3); TOTAL PROTEIN 7.6 g/dL (6.4-8.2)
[2018-07-17] MEDS ORDERED: ACETAMINOPHEN 500 MG TABLET PO ONE (18:00)
[2018-07-17] MEDS ORDERED: ACETAMINOPHEN 500 MG TABLET ONE (18:04)
[2018-07-17] MEDS ORDERED: LORazepam 2 MG/ML, 1ML ONE (18:18)
[2018-07-17] MEDS ORDERED: PHENYTOIN SODIUM 1,000 MG in SODIUM CHLORIDE 0.9% 100 ML IV ONE (18:30)
[2018-07-17] MEDS ORDERED: FILTER 0.22 MICRON FOR PHENYTOIN IV PRN (19:00)
[2018-07-17] MEDS ORDERED: SODIUM CHLORIDE FLUSH 10ML SYR IVF PRN (19:30)
[2018-07-17] MEDS ORDERED: ACETAMINOPHEN 325 MG TABLET PO PRN (20:00)
[2018-07-17] MEDS ORDERED: ONDANSETRON 2MG/ML, 2ML IVPush PRN (20:00)
[2018-07-17] MEDS ORDERED: ONDANSETRON ODT 4 MG PO PRN (20:00)
[2018-07-17] MEDS ORDERED: LORazepam 2 MG/ML, 1ML IVPush PRN (20:00)
[2018-07-17] MEDS ORDERED: PROMETHAZINE 25 MG/ML, 1ML IM PRN (20:00)
[2018-07-17] MEDS ORDERED: POLYETHYLENE GLYCOL 17 GM PACKET PO PRN (20:00)
[2018-07-17] MEDS ORDERED: hydrALAzine 20 MG/ML, 1ML IVPush PRN (20:00)
[2018-07-17] MEDS: POTASSIUM CHLORIDE 20 MEQ, MAGNESIUM SULFATE 2 GM, THIAMINE 100 MG, MVI ADULT 10 ML, FO... IV SCH (21:44)
[2018-07-17] MEDS: HEPARIN 5,000 UNITS/ML, 1ML SQ SCH (21:45)
[2018-07-18 00:03] LABS: MICROSCOPIC AUTO
[2018-07-18 00:08] LABS: CULTURE INDICATED? YES
[2018-07-18 01:08] VITALS: BP 133/72
[2018-07-18 06:06] LABS: BASOPHILS # (AUTO) 0.05 x10^3/uL (0-0.1); BASOPHILS % (AUTO) 1 % (0-1); EOSINOPHILS # (AUTO) 0.05 x10^3/uL (0-0.4); EOSINOPHILS % (AUTO) 1 % (1-7); LYMPHOCYTES # (AUTO) 1.29 x10^3/uL (1-3.4); LYMPHOCYTES % (AUTO) 26 % (22-44); MD NO; MEAN CORPUSCULAR HEMOGLOBIN 29.3 pg (27.5-34.5); MEAN CORPUSCULAR HGB CONC 33.2 g/dL (33.2-36.2); MEAN CORPUSCULAR VOLUME 88.3 fL (81-97); MEAN PLATELET VOLUME 7.6 fL (7.4-10.4); MONOCYTES % (AUTO) 14 % (2-9); NEUTROPHILS # (AUTO) 2.83 x10^3/uL (1.8-6.8); NEUTROPHILS % (AUTO) 57 % (42-75); PLATELET COUNT 227 x10^3/uL (130-400); RED BLOOD COUNT 4.79 x10^6/uL (4.38-5.82); RED CELL DISTRIBUTION WIDTH 17.1 % (9.4-14.8)
[2018-07-18 06:14] LABS: ANION GAP 8 mmol/L (5-15); CALCIUM 8.4 mg/dL (8.5-10.1); CHLORIDE 109 mmol/L (98-107); CREATININE 0.92 mg/dL (0.7-1.3)
[2018-07-18] MEDS: HEPARIN 5,000 UNITS/ML, 1ML SQ SCH ×3 (06:21→21:47)
[2018-07-18 07:22] VITALS: BP 113/73
[2018-07-18] MEDS: PHENYTOIN 100 MG CAPSULE PO SCH (09:30)
[2018-07-18 14:35] VITALS: BP 110/71
[2018-07-18 18:39] VITALS: BP 105/71
[2018-07-18] MEDS: POTASSIUM CHLORIDE 20 MEQ, MAGNESIUM SULFATE 2 GM, THIAMINE 100 MG, MVI ADULT 10 ML, FO... IV SCH (22:20)
[2018-07-19 01:15] VITALS: BP 125/75
[2018-07-19 03:23] VITALS: BP 119/81
[2018-07-19] MEDS: HEPARIN 5,000 UNITS/ML, 1ML SQ SCH ×3 (05:38→21:27)
[2018-07-19 07:11] VITALS: BP 125/74
[2018-07-19] MEDS: PHENYTOIN 100 MG CAPSULE PO SCH (08:17)
[2018-07-19 13:48] VITALS: BP 117/65
[2018-07-19 20:00] VITALS: BP 115/63
[2018-07-19] MEDS: POTASSIUM CHLORIDE 20 MEQ, MAGNESIUM SULFATE 2 GM, THIAMINE 100 MG, MVI ADULT 10 ML, FO... IV SCH (21:27)
[2018-07-20 02:00] VITALS: BP 130/80
[2018-07-20] MEDS: HEPARIN 5,000 UNITS/ML, 1ML SQ SCH ×2 (05:45→16:49)
[2018-07-20 07:09] VITALS: BP 128/83
[2018-07-20] MEDS: PHENYTOIN 100 MG CAPSULE PO SCH (08:49)
[2018-07-20 14:18] VITALS: BP 117/79
[2018-07-20] MEDS ORDERED: PHEN100C PO (14:38)
== END 2018-07-20 17:10 | disposition home or self-care (01) | DRG 100 ==
LOC: EDBD → MERGE 15:51 → ED 19:37 → SUATTDRO 19:50 → 5SO 20:39 → 4WST 07-19 03:00
PROVIDERS: ADMIT Hospitalist; ATTEND Family Medicine
DX: G40.201 Localization-related (focal) (partial) symptomatic epilepsy and epileptic syndromes with complex partial seizures, not intractable, with status epilepticus (principal); E43 Unspecified severe protein-calorie malnutrition; Z68.1 Body mass index [BMI] 19.9 or less, adult; F17.210 Nicotine dependence, cigarettes, uncomplicated; R32 Unspecified urinary incontinence; Z88.6 Allergy status to analgesic agent; Z87.820 Personal history of traumatic brain injury; Z91.14 Patient's other noncompliance with medication regimen; Z90.89 Acquired absence of other organs
CPT/HCPCS: 36415; 70450; 80048; 80053; 80185; 80307; 81001; 83735; 84100; 85025; 87086; 96365; 96375; 99285; G0378; J1165; J1644; J3411; J3475; J3480; J7042; J2060

== ENCOUNTER 2018-07-26 19:03 | Inpatient (IN) | payer MEDICARE, MEDICAID ==
[~2018-07-26] VITALS: Ht 170.2 cm; Wt 50.4 kg
[2018-07-26] MEDS ORDERED: LORazepam 2 MG/ML, 1ML ONE (19:21)
[2018-07-26] MEDS ORDERED: LORazepam 2 MG/ML, 1ML IVPush ONE (19:30)
[2018-07-26 19:38] LABS: BASOPHILS # (AUTO) 0.02 x10^3/uL (0-0.1); BASOPHILS % (AUTO) 0 % (0-1); EOSINOPHILS # (AUTO) 0.11 x10^3/uL (0-0.4); EOSINOPHILS % (AUTO) 2 % (1-7); LYMPHOCYTES # (AUTO) 1.19 x10^3/uL (1-3.4); LYMPHOCYTES % (AUTO) 23 % (22-44); MD NO; MEAN CORPUSCULAR HGB CONC 33.4 g/dL (33.2-36.2); MEAN CORPUSCULAR VOLUME 89.8 fL (81-97); MEAN PLATELET VOLUME 7.6 fL (7.4-10.4); MONOCYTES % (AUTO) 12 % (2-9); NEUTROPHILS # (AUTO) 3.18 x10^3/uL (1.8-6.8); NEUTROPHILS % (AUTO) 62 % (42-75); PLATELET COUNT 251 x10^3/uL (130-400); RED BLOOD COUNT 4.92 x10^6/uL (4.38-5.82); RED CELL DISTRIBUTION WIDTH 17.2 % (9.4-14.8)
[2018-07-26 19:48] LABS: ANION GAP 12 mmol/L (5-15); CALCIUM 8.9 mg/dL (8.5-10.1); CHLORIDE 104 mmol/L (98-107); CREATININE 1.17 mg/dL (0.7-1.3)
[2018-07-26 19:49] LABS: ALBUMIN 3.2 g/dL (3.4-5.0)
[2018-07-26] MEDS ORDERED: MORPHINE SULFATE 4 MG/ML, 1ML IVPush ONE (21:00)
[2018-07-26] MEDS ORDERED: MORPHINE SULFATE 4 MG/ML, 1ML ONE (21:03)
[2018-07-26] MEDS ORDERED: FILTER 0.22 MICRON FOR PHENYTOIN IV PRN (22:30)
[2018-07-26] MEDS ORDERED: PHENYTOIN SODIUM 1,000 MG in SODIUM CHLORIDE 0.9% 100 ML IV ONE (22:30)
[2018-07-26 22:40] LABS: AMPHETAMINE SCREEN, URINE Negative (Negative); BARBITURATE SCREEN, URINE Negative (Negative); BENZODIAZEPINE SCREEN, URINE Negative (Negative); CANNABINOID SCREEN, URINE Positive (Negative); COCAINE SCREEN, URINE Negative (Negative); METHADONE SCREEN, URINE Negative (Negative); OPIATE SCREEN, URINE Positive (Negative)
[2018-07-26] MEDS ORDERED: POLYETHYLENE GLYCOL 17 GM PACKET PO PRN (23:00)
[2018-07-26] MEDS ORDERED: BISACODYL 10 MG SUPP PR PRN (23:00)
[2018-07-26] MEDS ORDERED: ONDANSETRON ODT 4 MG PO PRN (23:00)
[2018-07-26] MEDS: NICOTINE 14MG/24 HR PATCH.TD24 TD SCH (23:00)
[2018-07-26] MEDS ORDERED: ACETAMINOPHEN 325 MG TABLET PO PRN (23:00)
[2018-07-26 23:11] VITALS: BP 119/75
[2018-07-26] MEDS: HEPARIN 5,000 UNITS/ML, 1ML SQ SCH (23:29)
[2018-07-26] MEDS: SODIUM CHLORIDE FLUSH 10ML SYR IVF SCH (23:29)
[2018-07-27] MEDS: METHOCARBAMOL 500 MG TABLET PO PRN ×2 (01:30→17:58)
[2018-07-27 02:13] VITALS: BP 124/79
[2018-07-27 05:35] LABS: BASOPHILS # (AUTO) 0.02 x10^3/uL (0-0.1); BASOPHILS % (AUTO) 0 % (0-1); EOSINOPHILS # (AUTO) 0.03 x10^3/uL (0-0.4); EOSINOPHILS % (AUTO) 1 % (1-7); LYMPHOCYTES # (AUTO) 1.03 x10^3/uL (1-3.4); LYMPHOCYTES % (AUTO) 21 % (22-44); MD NO; MEAN CORPUSCULAR HEMOGLOBIN 29.4 pg (27.5-34.5); MEAN CORPUSCULAR HGB CONC 32.9 g/dL (33.2-36.2); MEAN CORPUSCULAR VOLUME 89.3 fL (81-97); MEAN PLATELET VOLUME 8.1 fL (7.4-10.4); MONOCYTES # (AUTO) 0.75 x10^3/uL (0.2-0.8); MONOCYTES % (AUTO) 15 % (2-9); NEUTROPHILS # (AUTO) 3.04 x10^3/uL (1.8-6.8); NEUTROPHILS % (AUTO) 63 % (42-75); PLATELET COUNT 236 x10^3/uL (130-400); RED BLOOD COUNT 4.76 x10^6/uL (4.38-5.82); RED CELL DISTRIBUTION WIDTH 16.6 % (9.4-14.8)
[2018-07-27 05:43] LABS: ALANINE AMINOTRANSFERASE 47 U/L (12-78); ALBUMIN 3.4 g/dL (3.4-5.0); ANION GAP 8 mmol/L (5-15); CHLORIDE 105 mmol/L (98-107); CREATININE 0.93 mg/dL (0.7-1.3)
[2018-07-27 05:45] LABS: ALKALINE PHOSPHATASE 128 U/L (45-117); BILIRUBIN,TOTAL 0.3 mg/dL (0.2-1.0); TOTAL PROTEIN 7.6 g/dL (6.4-8.2)
[2018-07-27 08:30] VITALS: BP 137/87
[2018-07-27] MEDS: SENNA/DOCUSATE TABLET PO SCH (08:45)
[2018-07-27] MEDS: PHENYTOIN 100 MG CAPSULE PO SCH (08:45)
[2018-07-27] MEDS: SODIUM CHLORIDE FLUSH 10ML SYR IVF SCH ×2 (08:46→23:26)
[2018-07-27] MEDS: HEPARIN 5,000 UNITS/ML, 1ML SQ SCH ×3 (08:46→22:07)
[2018-07-27] MEDS ORDERED: GABAPENTIN 100 MG CAPSULE PO PRN (13:30)
[2018-07-27 14:30] VITALS: BP 108/76
[2018-07-27] MEDS: LIDODERM 5% PATCH TD SCH (14:43)
[2018-07-27 19:36] VITALS: BP 124/85
[2018-07-27] MEDS: NICOTINE 14MG/24 HR PATCH.TD24 TD SCH (23:00)
[2018-07-28 01:04] VITALS: BP 121/77
[2018-07-28] MEDS: METHOCARBAMOL 500 MG TABLET PO PRN (01:59)
[2018-07-28 05:41] LABS: ANION GAP 9 mmol/L (5-15); CALCIUM 9.4 mg/dL (8.5-10.1); CHLORIDE 105 mmol/L (98-107)
[2018-07-28 05:42] LABS: CREATININE 0.95 mg/dL (0.7-1.3)
[2018-07-28] MEDS: HEPARIN 5,000 UNITS/ML, 1ML SQ SCH ×2 (06:04→15:00)
[2018-07-28 08:00] VITALS: BP 119/81
[2018-07-28] MEDS: PHENYTOIN 100 MG CAPSULE PO SCH (08:56)
[2018-07-28] MEDS: SENNA/DOCUSATE TABLET PO SCH (08:56)
[2018-07-28] MEDS: SODIUM CHLORIDE FLUSH 10ML SYR IVF SCH (08:57)
[2018-07-28] MEDS ORDERED: ERGOCALCIFEROL 50,000 UNIT CAPSULE PO SCH (11:00)
[2018-07-28] MEDS ORDERED: NICO-486 TD (13:09)
[2018-07-28] MEDS ORDERED: LIDO700A20 TD (13:09)
[2018-07-28] MEDS ORDERED: METH500T7 PO (13:09)
[2018-07-28] MEDS ORDERED: ACET325T14 PO (13:09)
[2018-07-28] MEDS ORDERED: SENN1TAB8 PO (13:09)
[2018-07-28] MEDS ORDERED: ERGO500017 PO (13:09)
[2018-07-28] MEDS: LIDODERM 5% PATCH TD SCH (13:37)
[2018-07-28 13:44] VITALS: BP 107/71
== END 2018-07-28 17:13 | DRG 543 ==
LOC: ED 22:00 → 3NE 22:09 → ED 22:25
PROVIDERS: ADMIT Hospitalist; ATTEND Hospitalist
DX: M48.56XA Collapsed vertebra, not elsewhere classified, lumbar region, initial encounter for fracture (principal); E44.1 Mild protein-calorie malnutrition; Z68.1 Body mass index [BMI] 19.9 or less, adult; G40.909 Epilepsy, unspecified, not intractable, without status epilepticus; I10 Essential (primary) hypertension; E55.9 Vitamin D deficiency, unspecified; F15.10 Other stimulant abuse, uncomplicated; F12.90 Cannabis use, unspecified, uncomplicated; F17.210 Nicotine dependence, cigarettes, uncomplicated; Z91.14 Patient's other noncompliance with medication regimen; Z88.8 Allergy status to other drugs, medicaments and biological substances
CPT/HCPCS: 36415; 72110; 80048; 80053; 80185; 80307; 82040; 82306; 85025; 93005; 96365; 96375; G0378; J1165; J1644; J2060